=== PATIENT | female | born 1955 | race African-American/Black ===

== ENCOUNTER → 2022-08-28 09:38 | Outpatient (BNVA) | payer OTHER, SELFPAY | PROVIDERS: PCP Hospitalist; Referring Provider Hospitalist; Visit Provider Physician Assistant | DX: Z12.11 Encounter for screening for malignant neoplasm of colon (principal) | CPT/HCPCS: 99202 ==

== ENCOUNTER 2025-02-14 11:11 | Outpatient (AMB) | payer MEDICARE, SELFPAY ==
--- NOTE | 2025-02-14 11:12 | A.OFFVIS_ITS ---
Vital Signs 3 02/14/25 11:18 Height 5 ft 4 in Weight 227 lb 8 oz BMI 39.0 BP 108/64 Blood Pressure Location Rt brachial Position Sitting Pulse 72 Pulse Source Pulse Oximeter Pulse Oximetry (%) 97 Oxygen Delivery Method Room Air Intake Visit Reasons: Other low back pain Intake Note: Pain today 05/26 Prefinish Operator Required: No Accompanied by: Self / Same As Patient Allergies acetaminophen [Percocet] Allergy (Unknown, Verified 02/14/25 11:18) Vomiting ofloxacin [From FLOXIN] Allergy (Unknown, Verified 02/14/25 11:18) HIVES oxycodone [From OXYCONTIN] Allergy (Unknown, Verified 02/14/25 11:18) PER H&P Sulfa (Sulfonamide Antibiotics) Allergy (Unknown, Verified 02/14/25 11:18) Nausea and Vomiting sulfamethoxazole [From BACTRIM] Allergy (Unknown, Verified 02/14/25 11:18) HIVES trimethoprim [From BACTRIM] Allergy (Unknown, Verified 02/14/25 11:18) HIVES HPI HPI Other low back pain: Details: The patient is a 69-year-old female with chronic low back pain with bilateral radiculopathy and degenerative disc disease, lumbar spinal stenosis, left hip, back, knees and left wrist osteoarthritis, fibromyalgia, depression, migraine headaches, presenting today with chronic back pain with radiculopathy. Her chronic low back pain, which has been persisting for several years, is attributed to degenerative disc disease and spinal stenosis. Associated symptoms include left leg numbness, tingling, and weakness. She has experienced intermittent falls due to left leg giving out. Despite prior injections at [facility] for pain relief and past history of physical therapy and TENS unit, benefits have been transient. Patient reports she is scheduled for potential L4-L5 decompression with Dr. Szymanski at [facility] in 2 weeks. She is here to discuss pain medication options for her pain control. Denies any fever or chills, abdominal or groin pain, bladder or bowel dysfunction or saddle anesthesia. Patient lives alone independently. Reports she follows with Psychiatrist provider at [facility] every 3 months. Reports occasional passive suicidal ideation without a clear plan which she attributes to chronic pain and depression. - Onset: Several years ago, worsening gradually. - Quality: Described as pulsing, throbbing, pounding, stabbing, sharp, tingling, burning, sore, aching, heavy, and radiating. - Primary Location: Lower back, radiating to hips and legs, worse on the left. - Exacerbating Factors: Walking, sitting, standing, bending, and all movements. Cold rainy weather changes. - Relieving Factors: Temporary relief with injections. 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 - Affect: Pain impacts sleep and mood, causing distress and depression. - Analgesia: Reports constant pain levels of 8 to 9/10; injections offered temporary relief. - Adverse Effects: Constipation from Ozempic; baclofen, gabapentin, Ibuprofen, meloxicam pain do not help. - Activities of Daily Living: Pain affects mobility, causes occasional falls; functional goal includes pain reduction and improved movement. - Aberrant Drug-Related Behaviors: None reported; high opioid risk due to past attempted suicide and current SI w/o plan. Past Procedures at [facility]: 02/16/24: Midline L5-S1 Interlaminar JOHANNA- 75% pain relief for 5 days 03/24/24: Bilateral L4 TFESI- no improvement 06/16/24: Bilateral L4-L5 facet joints with left facet joint cyst aspiration and rupture- no improvement Oswestry Low Back Disability Score=25 [facility] Medical History (Updated 02/14/25 @ 12:05 by TIMMY Corona) Lumbosacral spondylosis Lumbar degenerative disc disease Personality disorder Schizophrenia Osteoarthritis Nephrolithiasis Hyperlipidemia Hepatitis A GERD (gastroesophageal reflux disease) Fatty liver Eczema Chronic kidney disease Cervical lymphadenopathy (~04/2018) Anemia due to chronic kidney disease Migraines Depression Anxiety Fibromyalgia Hypertension High cholesterol Kidney disease Liver disease Asthma Family History Mother Dementia Social History Household Members: Unknown / Unable to assess Both parents involved: No Housing: Apartment Alcohol intake: current Alcohol intake frequency: holidays/special occasions only Patient Tobacco Use Status: Former Tobacco user e-Cigarette/Vaping Use: Never Used Review of Systems Const Details: - General: Reports constant severe pain. - Neurologic: Reports numbness and tingling in the left leg. - Musculoskeletal: Denies urinary incontinence and numbness in buttocks, except for reported left leg weakness and hip pain. All systems reviewed & are unremarkable except as noted in HPI and below Physical Exam General: Appears afebrile. Alert and oriented. Mood appropriate. Flat affect. Follows and participates in conversation appropriately. Respiratory effort is unlabored. No cough. Able to transition from sit to stand unassisted. Ambulates with bilaterally normal heel strike and toe off, reports increased back pain with heel standing, left>right. General: Yes no CVA tenderness Back/Spine/Pelvis Other: Limited lumbar ROM due to pain. Antalgic gait with mild limping. Leg discrepancy noted with left leg shorter. Demonstrates 5/5 right and 4/5 left strength of quadriceps bilaterally as well as flexion/dorsiflexion of bilateral feet against resistance. 2+ pedal pulses bilaterally. Straight leg rise with dorsiflexion positive on the left. +1 right and diminished left patellar and diminished achilles reflexes bilaterally. Facet loading test positive bilaterally. Boaz sign, Phan?s, Pelvic compression and Stinchfield tests are positive bilaterally, left>right. Minimal left groin pain with left I/E hip rotations. Valsalva maneuver is positive. Back: no CVA tenderness Cervical Spine: cervical ROM normal, cervical muscular tenderness, No Cervical spine scars present and No Cervical spine tenderness Thoracic/Lumbar Spine: thoracic and lumbar spine normal to inspection, No Thoracic/lumbar spine scar(s), Lasegue's sign positive on the left and localized, pain with thoraco-lumbar ROM, paraspinal muscle tenderness, thoraco- lumbar ROM limited, No thoracic spinal tenderness and lumbar spinal tenderness Pelvis: no buttock tenderness and no sciatic notch tenderness Sacroiliac joints: bilaterally tender to palpation Extrem General: Yes capillary refill normal, Yes no clubbing, cyanosis or edema and Yes no calf tenderness Results Reviewed Results Reviewed: Assessment & Plan Assessment & Plan (1) Fibromyalgia: Code(s): M79.7 - Fibromyalgia Category: Medical (2) Spinal stenosis of lumbar region with neurogenic claudication: Code(s): M48.062 - Spinal stenosis, lumbar region with neurogenic claudication Category: Medical (3) Lumbar degenerative disc disease: Code(s): M51.369 - Other intervertebral disc degeneration, lumbar region without mention of lumbar back pain or lower extremity pain Category: Medical (4) Lumbosacral spondylosis: Code(s): M47.817 - Spondylosis without myelopathy or radiculopathy, lumbosacral region Category: Medical (5) Depression: Code(s): F32.A - Depression, unspecified Category: Medical Plan The management plan involves proceeding with the scheduled L4-L5 decompression and potential fusion surgery, addressing the underlying spinal pathology. Postoperative recovery will include rehabilitation, following which options for managing residual arthritic pain will be considered. Continued psychiatric care is recommended alongside optimizing diabetes management. Future interventions such as radiofrequency ablation or nerve stimulation might be useful if pain persists post-recovery. All questions and concerns have been answered and patient agreed with the plan. Follow up as needed. Patient was informed and verbally consented to the use of an ambient scribe for clinic note documentation during this visit. Patient Instructions: I discussed with the patient the diagnosis of lumbar spondylosis, degenerative disc disease and spinal stenosis and the plan for the upcoming surgical intervention. The patient acknowledged understanding of potential alleviation of radicular symptoms. We reviewed alternatives for managing chronic arthritic back pain post-surgery like radiofrequency ablation and nerve stimulation, highlighting expectations, risks, and possible outcomes, including temporary relief durations of up to 10-12 months. I emphasized the significance of postoperative follow-ups with Dr. Szymanski and post-surgical rehabilitation for optimal recovery. I have equipped her with brochures and detailed information on the appropriate management of back pain and the recommended interventions. - Follow up diligently with Dr. Szymanski for preoperative preparation and postoperative appointments. - Engage in prescribed postoperative rehabilitation measures. - Continue taking prescribed psychiatric medications for depression and bipolar disorder and follow up with Psychiatrist. - Contact your primary care provider for obtaining a cane or walker if needed for mobility support. - Maintain regular psychiatric evaluations and report any psychological symptoms. - Review and consider information on radiofrequency ablation and nerve stimulation for managing axial low back pain. Coding Level of Care Code New Pt Level 4 (56760) Diagnoses Fibromyalgia M79.7 Spinal stenosis of lumbar region with neurogenic claudication M48.062 Lumbar degenerative disc disease M51.369 Lumbosacral spondylosis M47.817 Depression F32.A Additional Codes PHQ-9 - 56004 - PHQ-9 Billing: Yes ([id number]) PHQ-9 Over the last 2 weeks, how often have you been bothered by any of the following problems? 1. Little interest or pleasure in doing things: several days 2. Feeling down, depressed, or hopeless: several days 3. Trouble falling or staying asleep, or sleeping too much: several days 4. Feeling tired or having little energy: several days 5. Poor appetite or overeating: several days 6. Feeling bad about yourself - or that you are a failure or have let yourself or your family down: several days 7. Trouble concentrating on things, such as reading the newspaper or watching television: several days 8. Moving or speaking so slowly that other people could have noticed. Or the opposite - being so fidgety or restless that you have been moving around a lot more than usual: several days 9. Thoughts that you would be better off or of hurting yourself in some way: several days Total score: 9 Depression Screening Interpretation: Positive Depression Screening Follow-up: Existing condition, In treatment, Community Mental Health Worker F/U and Follow- up Visit Requested Depression Screening Done: Yes 30138 - PHQ-9 Billing: Yes Source: Developed by Drs. Hemanth Lua, Sheyla Ward, Suman Pelaez and colleagues, with an educational willem from [employer]
[2025-02-14 11:18] VITALS: BP 108/64; PULSE 72; O2SAT 97; BMI 39.0
--- OUTSIDE RECORDS SUMMARY | 2025-02-14 12:48 | XMS_ITS | Encounter Summary ---
Author Organization [facility] Address [address] [facility] [address] [place] [address] Phone Care Team Providers Care Visual Manager Name Role Phone Juanita Martinez DO Primary Care Provide r Reason for Visit * Reason Comments Med Refill Encounter Details Date Type Department Care Team (Late st Contact Info) Description 12/22/2024 Refill [facility] [address] [facility] [address] [place] [address] Rolf Rivera MD [address] [facility] [address] [place] [address] Social History Tobacco Use Types Packs/Day Years Used Date Smoking Tobacco: Former Cigarettes Q uit: 1985 Smokeless Tobacco: Never Alcohol Use Standard Drinks/Week Comments Not Currently 0 (1 standard drink = 0.6 oz pur e alcohol) Comments Unknown Sex and Gender Information Value Date Recorded Sex Assigned at Not on file Legal Sex Female 5:16 PM EST Gender Identity Not on file Sexual Orientation Not on file documented as of this encounter Plan of Treatment Not on file documented as of this encounter Visit Diagnoses Not on filedocumented in this encounter Care Teams Visual Manager Relationship Specialty Start Date End Date Juanita Martinez DO [address] [place] [address] [address] [place] [phone] PCP - General Internal Medicine 02/12/23 documented as of this encounter
--- OUTSIDE RECORDS SUMMARY | 2025-02-14 12:48 | XMS_ITS | Clinical Summary ---
Author Organization [facility] Address [address] [place] [address] Phone Care Team Providers Care Facing Baster Jumpbasting Name Role Phone Juanita Martinez DO Primary Care Provide r Allergies Active Allergy Reactions Criticality Noted Date Comments Ofloxacin Other (see comments) 01/07/2022 Oxycodone-Acetaminophen Other (see comments) Sulfamethoxazole-Trimethoprim Other (see comments) 01/07/2022 Medications docusate sodium (COLACE) 100 MG capsule Take 1 capsule by mouth 1 (one) time each day Active clonazePAM (KlonoPIN) 0.5 MG tablet Take 1 tablet by mouth 1 (one) time each day Active albuterol HFA (PROVENTIL HFA;VENTOLIN HFA) 108 (90 Base) MCG/ACT inhaler 01/04/2022 Active atorvastatin (LIPITOR) 80 MG tablet TAKE 1 TABLET BY MOUTH DAILY. INCREASE DOSE 12/26/2021 Active busPIRone (BUSPAR) 10 MG tablet Take 10 mg by mouth in the morning and 10 mg in the evening. 11/30/2021 Active cyanocobalamin (VITAMIN B-12) 1000 MCG tablet Take 1,000 mcg by mouth 1 (one) time each day 12/07/2021 Active ezetimibe (ZETIA) 10 MG tablet Take 10 mg by mouth 1 (one) time each day 12/26/2021 Active fluticasone-leonardo meterol (ADVAIR DISKUS) 250-50 MCG/DOSE diskus inhaler 01/04/2022 Active hydrOXYzine (ATARAX) 50 MG tablet 25 mg 01/05/2022 Active loratadine (CLARITIN) 10 MG tablet Take 10 mg by mouth 1 (one) time each day if needed 12/07/2021 Active LORazepam (ATIVAN) 0.5 MG tablet TAKE 1 TABLET BY MOUTH EVERY DAY NEEDED FOR SEVERE ANXIETY 01/01/2022 Active meclizine (ANTIVERT) 25 MG tablet 12/07/2021 Active Melatonin 5 MG tablet TAKE 1 TABLET BY MOUTH EVERY EVENING AT BEDTIME NEEDED 11/27/2021 Active metoprolol succinate XL (TOPROL XL) 25 MG 24 hr tablet Take 25 mg by mouth 1 (one) time each day 11/21/2021 Active OLANZapine (ZyPREXA) 5 MG tablet Take 5 mg by mouth at bed time 12/31/2021 Active omeprazole (PriLOSEC) [address] capsule Take 40 mg by mouth 1 (one) time each day 11/27/2021 Active topiramate (TOPAMAX) 200 MG tablet Take 200 mg by mouth at bed time 11/29/2021 Active traZODone (DESYREL) 100 MG tablet TAKE 1 TO 2 TABLETS BY MOUTH EVERY NIGHT NEEDED FOR SLEEP 12/20/2021 Active traZODone (DESYREL) 50 MG tablet 01/05/2022 Active PARoxetine (PAXIL) 40 MG tablet Take 40 mg by mouth at bed time 01/13/2023 Active mirtazapine (REMERON) 7.5 MG tablet Take 7.5 mg by mouth at bed time 01/29/2023 Active Aspirin Low Dose 81 MG EC tablet Take 81 mg by mouth 1 (one) time each day 12/30/2022 Active Empagliflozin (Jardiance) 10 MG tablet Take 10 mg by mouth 1 (one) time each day 30 tablet 1 10/12/2024 Active Active Problems Problem Noted Date Diagnosed Date Chronic kidney disease due to benign hypertensio n 12/08/2022 Stage 3b chronic kidney disease 06/26/2022 Essential hypertension 06/26/2022 Renal osteodystrophy 06/26/2022 Chronic kidney disease 01/07/2022 Hyperlipidemia 01/07/2022 Vitamin D deficiency 01/07/2022 Renal stone 01/07/2022 Hypertension 01/07/2022 Encounters Date Type Department Care Team Description 12/22/2024 Refill [facility] [address]. [address] [place] [address] [address] [place] [address] Rolf Rivera MD from Last 3 Months Family History Medical History Relation Comments Heart disease Father Dementia Mother Relation Status Comments Father Mother Social History Tobacco Use Types Packs/Day Years Used Date Smoking Tobacco: Former Cigarettes Q uit: 1985 Smokeless Tobacco: Never Tobacco Cessation:Counseling Given: No Alcohol Use Standard Drinks/Week Comments Not Currently 0 (1 standard drink = 0.6 oz pur e alcohol) Comments Unknown Sex and Gender Information Value Date Recorded Sex Assigned at Not on file Legal Sex Female 5:16 PM EST Gender Identity Not on file Sexual Orientation Not on file Last Filed Vital Signs Vital Sign Reading Time Taken Comments Blood Pressure 113/60 02/12/2023 3:12 PM EDT Pulse 67 02/12/2023 3:12 PM EDT Temperature - - Respiratory Rate - - Oxygen Saturation 97% 08/07/2022 2:48 PM EDT Inhaled Oxygen Concentration - - Weight 107 kg (235 lb) 02/12/2023 3:12 PM EDT Height - - Body Mass Index - - Plan of Treatment Health Maintenance Due Date Last Done Comments Breast Cancer Screening 1955 Colorectal Cancer Screening: Annual FOBT 2003 Colorectal Cancer Screening: Colonoscopy 2003 Colorectal Cancer Screening: Sigmoidoscopy 2003 Hepatitis B Vaccine (1 of 3 - Risk 3-dose series) 12/2013 Pneumococcal Vaccine: 65+ Years (2 of 2 - PCV) 022 06/13/2021 Diabetes: Hemoglobin A1C 06/03/2024 12/06/2021 Diabetes: Ophthalmology Exam 06/03/2024 Diabetes: Pedal Pulse Checked 06/03/2024 Diabetes: Sensory Foot Exam 06/03/2024 Diabetes: Visual Foot Exam 06/03/2024 Influenza Vaccine (#1) 2024 Procedures Procedure Name Priority Date/Time Associated Diagnosis Comments EXT RESULT ENTRY Routine 12/06/2021 from Last 3 Months or Most Recently Relevant to Health Maintenance Results * (ABNORMAL) EXT RESULT ENTRY (12/06/2021) WBC 4.7 3.3 - 10.0 10*3/ML Red Blood Cell Count 4.24 Hemoglobin 12.8 12.0 - 16.0 Hematocrit 41.2 36.0 - 46.0 Platelets 181 150 - 399 10*3/UL MCV 97.2 82.0 - 108.0 Sodium 145 137 - 147 Potassium 4.3 3.4 - 5.5 Chloride 110.0(A) 99.0 - 108.0 Bicarbonate (CO2) 26 22 - 30 mmol/L Anion Gap 9 <=30 MMOL/L BUN 17 4 - 21 mg/dL Creatinine 1.40(A) 0.50 - 1.10 mg/dL Albumin 4.4 3.5 - 5.0 g/dL Calcium 9.4 8.7 - 10.7 mg/dL Hemoglobin A1C 6.4(A) 4.0 - 6.0 12/06/2021 [facility] Provider LAB BLOOD ORDERABLES Terrie l Result from Last 3 Months or Most Recently Relevant to Health Maintenance Insurance [facility] MEDICARE AEST. [facility] MEDICARE Care Teams Facing Baster Jumpbasting Relationship Specialty Start Date End Date Juanita Martinez DO [address] [facility] [address] [place] [address] PCP - General Internal Medicine 02/12/23
--- OUTSIDE RECORDS SUMMARY | 2025-02-14 12:48 | XMS_ITS | Encounter Summary ---
Author Organization [facility] Address [address] [place] [address] Phone Care Team Providers Care Financial Aid Administrator Name Role Phone Juanita Martinez DO Primary Care Provide r Encounter Details Date Type Department Care Team (Late st Contact Info) Description 01/02/2022 Documentation Only [facility], [address] [place] [phone] Joshua Currie MD [address] [place] [address] [address] [place], [place] Social History Tobacco Use Types Packs/Day Years Used Date Smoking Tobacco: Never Assessed Comments Unknown Sex and Gender Information Value Date Recorded Sex Assigned at Not on file Legal Sex Female 5:16 PM EST Gender Identity Not on file Sexual Orientation Not on file documented as of this encounter Plan of Treatment Not on file documented as of this encounter Visit Diagnoses Not on filedocumented in this encounter Care Teams Financial Aid Administrator Relationship Specialty Start Date End Date Juanita Martinez DO [address] [place] [address] [address] [place] [phone] PCP - General Internal Medicine 02/12/23 documented as of this encounter
--- OUTSIDE RECORDS SUMMARY | 2025-02-14 12:48 | XMS_ITS | Clinical Summary ---
Author Organization [address] [facility] Address [address] [place] [address] Phone Care Team Providers Care Special Effects Person Name Role Phone Juanita Sierra DO Primary Care Provider [phone] Allergies Active Allergy Reactions Criticality Noted Date Comments Ofloxacin 04/23/2018 Oxycodone 04/23/2018 Oxycodone-Acetaminophen 04/23/2018 Sulfamethoxazole-Trimethoprim 2017 Medications baclofen (LIORESAL) 10 mg tablet Take 10 mg by mouth 3 times daily. Active buPROPion XL (WELLBUTRIN XL) 150 mg 24 hr tablet Take 1 Tab by mouth daily. Active cholecalcifero l (VITAMIN D-3) 25 mcg (1,000 unit) tablet Take 2,000 Units by mouth daily. Active clonazePAM (KlonoPIN) 0.5 mg tablet Take 1 tablet (0.5 mg total) by mouth. Active cyanocobalamin (VITAMIN B-12) 1,000 mcg tablet Take 1,000 mcg by mouth daily. Active docusate sodium (COLACE) 100 mg capsule Take 100 mg by mouth daily. Active fluticasone propion-salmet Valerie (ADVAIR DISKUS) 500-50 mcg/dose diskus inhaler Inhale 1 Puff into the lungs 2 times daily. Active haloperidoL (HALDOL) 10 mg tablet Take 15 mg by mouth at bedtime. Active LORazepam (ATIVAN) 0.5 mg tablet Take 0.5 mg by mouth 3 times daily. Active melatonin 5 mg tablet Take 10 mg by mouth at bedtime. Active metoprolol succinate (TOPROL-XL) 25 mg 24 hr tablet Take 25 mg by mouth daily. Active PARoxetine (PAXIL) 40 mg tablet 1 tablet (40 mg total) 1 (one) time each day in the morning. Active QUEtiapine (SEROquel) 400 mg tablet Take 800 mg by mouth at bedtime. Active topiramate (TOPAMAX) 200 mg tablet Take 100 mg by mouth at bedtime. Active acamprosate (CAMPRAL) 333 mg EC tablet Take 1 tablet (333 mg total) by mouth. 4 Active albuterol HFA (PROAIR HFA ; PROVENTIL HFA ; VENTOLIN HFA) 90 mcg/actuation inhaler Inhale 2 puffs by mouth. every 4 to 6 hours as needed 4 Active aspirin 81 mg EC tablet Take 1 tablet (81 mg total) by mouth 1 (one) time each day. 4 Active atorvastatin (LIPITOR) 80 mg tablet Take 1 tablet (80 mg total) by mouth. 4 Active busPIRone (BUSPAR) 15 mg tablet Take 1 tablet (15 mg total) by mouth. 4 Active gabapentin (NEURONTIN) 100 mg tablet Take 1 tablet (100 mg total) by mouth 2 (two) times a day. at bedtime 4 Active hydrOXYzine HCL (ATARAX) 25 mg tablet 4 Active loratadine (CLARITIN) 10 mg tablet Take 1 tablet (10 mg total) by mouth 1 (one) time each day. 4 Active OLANZapine (ZyPREXA) 5 mg tablet Take 1 tablet (5 mg total) by mouth. at bedtime. 4 Active Ozempic 0.25 mg or 0.5 mg (2 mg/3 mL) injection pen INJECT 0.5MG UNDER THE SKIN ONCE WEEKLY 4 Active Stimulant Laxative Plus 8.6-50 mg per tablet 4 Active traZODone (DESYREL) 150 mg tablet TAKE 1 TABLET BY MOUTH EVERY NIGHT FOR SLEEP 4 Active Wixela Inhub 250-50 mcg/dose diskus inhaler Inhale 1 puff by mouth 2 (two) times a day. 4 Active omeprazole (PriLOSEC) [address] capsule Take 1 capsule (40 mg total) by mouth 1 (one) time each day. 4 Active DULoxetine (CYMBALTA) [address] capsule Take 2 capsules (40 mg total) by mouth 1 (one) time each day. Do not crush or chew. Active mirtazapine (REMERON) 7.5 mg tablet Take 1 tablet (7.5 mg total) by mouth at bedtime. Active OLANZapine (ZyPREXA) 2.5 mg tablet at bedtime. Active omeprazole (PriLOSEC) [address] capsule Take 20 mg by mouth daily. 025 Discontinued Farxiga 10 mg tablet Take 1 tablet (10 mg total) by mouth 1 (one) time each day in the morning. 4 025 Discontinued Jardiance 10 mg tablet Take 1 tablet (10 mg total) by mouth 1 (one) time each day. 4 025 Discontinued ibuprofen (ADVIL,MOTRIN) 600 mg tablet Take 1 tablet (600 mg total) by mouth 3 (three) times a day if needed. 4 025 Discontinued meloxicam (MOBIC) 15 mg tablet Take 1 tablet (15 mg total) by mouth 1 (one) time each day. 4 025 Discontinued penicillin v potassium (VEETID) 500 mg tablet Take 1 tablet (500 mg total) by mouth. 4 025 Discontinued Active Problems Problem Noted Date Diagnosed Date Spinal stenosis, lumbar ana on without neurogenic claudication 01/27/2025 Spinal stenosis of lumbar re gion with neurogenic claudication 11/03/2024 Assessment & Plan (11/03/2024 10:47 PM EST): Patient describes pain in her back that radiates to the hips and bilateral legs L >R. More specifically she describes numbness in the lateral thighs, at times burning throbbing pain, hypersensitivity in the left lateral thigh. She states it feels like someone is digging into her thigh with a needle, putting pepper on it and peeling back the skin and pouring hot water on it . She notes pain with sitting, standing, walking. She has difficulty doing daily activities like washing dishes, sweeping, mopping, bending. She went for bilateral L4-5 facet injections with cyst aspirations 06/16/2024, states it did help somewhat, about 30% with her pain. Prior to that she had bilateral L4 TFE's 03/24/2024, epidural steroid injection -12-10. She rates her pain 7-10, states it was a 10/10 before the most recent facet injections. She does note improvement walking distances if she is able to lean forward on a shopping cart at the store. She reports history of leg length discrepancy. 2 weeks ago she had severe left hip pain that lasted 1-1/2 weeks. She was diagnosed with diabetes about 2 months ago. 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 No recent physical therapy. Patient is on gabapentin, is a non-smoker. Patient had MRI lumbar spine 08/20/2024 [facility] that shows multilevel degenerative changes, including L4-5 moderately severe central stenosis, prominent DJD. We reviewed the images in detail on the computer with the patient and her daughter. Ms. Hugo describes severe back and L >R leg pain, worse with standing and walking, bending. I will review her MRI with Dr. Szymanski to see if she recommends surgical intervention, like possible L4-5 decompression +/- fusion, and see if she would like patient to have EMG/NCS study. Patient reports having a more recent lumbar MRI done in September at [place], we will try to get most recent imaging study sent over. Patient's daughter works at the PCP office, will send over recent labs including A1c level, and recent PCP notes. Patient may need cardiac clearance if she has surgery. All questions answered. Anemia due to chronic kidney disease 04/23/2018 Asthma 04/23/2018 Cervical lymphadenopathy 04/23/2018 CKD (chronic kidney disease) stage 3, GFR 30-59 ml/min 04/23/2018 Colon polyps 04/23/2018 Depression 04/23/2018 Overview (10/18/2024): IP for depression & impulsivity Eczema 04/23/2018 Fatty liver 04/23/2018 Fibromyalgia 04/23/2018 GERD (gastroesophageal reflux disease) 8 Hepatitis A 04/23/2018 Hyperlipidemia 04/23/2018 Hypertension 04/23/2018 Migraine 04/23/2018 Nephrolithiasis 04/23/2018 Overview (10/18/2024): Left Osteoarthritis 04/23/2018 Overview (10/18/2024): Lumbosacral spine, hips, knees, Left wrist Schizophrenia 04/23/2018 Overview (10/18/2024): Personality Disorder Encounters Date Type Department Care Team Description 01/25/[address] [id number] Ruby Salinas MA Advice Only 01/04/[address] [phone] Tish Gallegos PA Results (EMG/NCS study) 12/13/[address] [phone] Ruby Salinas MA Appointment (EMG/NCS appointment scheduled for 12/27/24 @ 1pm w/ at [facility]. Pt aware) 11/30/[address] [phone] Tish Gallegos PA Results (Lumbar spine MRI reviewed with Dr. Szymanski) from Last 3 Months Immunizations Name Administration Dates Next Due Influenza Quadravalent, MDCK , 0.5ml, preservative free (Flucelvax) 6mo and older 09/27/2021 Influenza Quadrivalent, 0.5m l, preservative free (Fluarix; FluLaval; Fluzone) ages 6mo and older (Afluria) 3yo and older 07/27/2018,10/20/2017 Influenza trivalent, 0.5mL (Fluad) 65yo and olde r 09/28/2024 Pneumococcal polysaccharide 23 valent (Pneumovax 23) 2yo and older 06/13/2021 Surgical History Surgery Date Site/Laterality Comments NASAL SEPTUM SURGERY REPAIR NASAL SEPTAL PERFORATIONS OTHER SURGICAL HISTORY endometrial surgery CATARACT EXTRACTION DILATION AND CURETTAGE OF UTERUS Medical History Medical History Date Comments Asthma 04/23/2018 Hypertension 04/23/2018 GERD (gastroesophageal reflux disease) 04/23/2018 Depression 04/23/2018 P 9-08/2017 for depression & impulsivity Fibromyalgia 04/23/2018 Migraine 04/23/2018 Hyperlipidemia 04/23/2018 Nephrolithiasis 04/23/2018 Left CKD (chronic kidney disease) stage 3, GFR 30-59 ml/min (CMS/HCC) 04/23/2018 Fatty liver 04/23/2018 Colon polyps 04/23/2018 Osteoarthritis 04/23/2018 Lumbosacral spin e, hips, knees, Left wrist Hepatitis A 04/23/2018 Schizophrenia 04/23/2018 Personality Diso rder Anemia due to chronic kidney disease 04/23/2018 Cervical lymphadenopathy 8 Eczema 04/23/2018 Family History Medical History Relation Name Comments Breast cancer Sister diag in her 50 's Relation Name Status Comments Sister Social History Tobacco Use Types Packs/Day Years Used Date Smoking Tobacco: Former Cigarettes Q uit: 11/17/1993 Smokeless Tobacco: Never Alcohol Use Standard Drinks/Week Comments Yes 0 (1 standard drink = 0.6 oz pur e alcohol) Comments Unknown Sex and Gender Information Value Date Recorded Sex Assigned at Not on file Legal Sex Female 8:39 PM EST Gender Identity Not on file Sexual Orientation Not on file Obstetrics History Last Filed Vital Signs Vital Sign Reading Time Taken Comments Blood Pressure - - Pulse - - Temperature - - Respiratory Rate - - Oxygen Saturation - - Inhaled Oxygen Concentration - - Weight 101 kg (222 lb) 02/10/2025 11:00 AM EDT Height 162.6 cm (5' 4 ) 02/10/2025 11:00 AM EDT Body Mass Index 38.11 02/10/2025 11:00 AM EDT Plan of Treatment Upcoming Encounters Date Type Department Care Team (Latest Contact Info) Description 02/18/2025 9:00 AM EDT Pre-Admission Testing [facility] Pre-Admission Testing [address] [place] [phone] 02/28/2025 7:30 AM EDT Hospital Encounter [facility] [place] [address] [place] [phone] Dasia Szymanski MD [address] [place] [address] 02/28/2025 7:30 AM EDT - 02/28/2025 9:[address] [facility] [place] [address] [place] [phone] Dasia Szymanski MD [address] [place] [address] L4-5 decompression [90125 (CPT??)] Scheduled Procedures Name Priority Associated Diagnoses Date/Ti me DECOMPRESSION LUMBAR Spinal stenosis, lumbar region without neurogenic claudication 02/28/2025 7:30 AM EDT Health Maintenance Due Date Last Done Comments Breast Cancer Screening 1954 Diabetes: Annual Foot Exam 1964 Diabetes: Annual Retina Eye Exam 1964 DTaP,Tdap,and Td Vaccines (1 - Tdap) 1973 Zoster Vaccines (1 of 2) 2004 RSV Immunization Patients 60+ Years Old (1 - Risk 60-74 years 1-dose series) 2014 Diabetes: Annual GFR (Glomerular Filtration Rate) 10/05/2019 10/05/2018 Pneumococcal Vaccine: 50+ Years (2 of 2 - PCV) 06/13/2022 06/13/2021 Cholesterol Screening (Lipid Panel) 10/13/2024 Colorectal Cancer Screening: Colonoscopy 10/13/2024 Depression Screening 10/13/2024 Falls Risk Assessment 10/13/2024 Hepatitis C Screening 10/13/2024 Hypertension/CHF/CAD Annual BMP Blood Test 10/13/2024 10/05/2018 Medicare Annual Wellness Visit 10/13/2024 Osteoporosis Screening (Bone Density Screening) 10/13/2024 Social Influencers of Health Screening 10/13/2024 Diabetes: Annual Urine Albumin-Creatinine Ratio (uACR) 01/27/2025 02/12/2023 Diabetes: Blood Sugar Control Test (HGBA1C) 01/27/2025 COVID-19 Vaccine Completed 09/28/2024, 12/2021, 06/18/2022, Additional history exists Influenza Vaccine Completed 09/28/2024, , 07/27/2018, Additional history exists HIB Vaccines Aged Out No longer eligi ble based on patient's age to complete this topic HPV Vaccines Aged Out No longer eligi ble based on patient's age to complete this topic Hepatitis A Vaccines Aged Out No long er eligible based on patient's age to complete this topic Hepatitis B Vaccines Aged Out No long er eligible based on patient's age to complete this topic IPV Vaccines Aged Out No longer eligi ble based on patient's age to complete this topic MMR Vaccines Aged Out No longer eligi ble based on patient's age to complete this topic Meningococcal ACWY Vaccine Aged Out N o longer eligible based on patient's age to complete this topic Meningococcal B Vacine Aged Out No lo nger eligible based on patient's age to complete this topic RSV Immunization Patients Under 20 months Aged Out No longer eligible based on patient's age to complete this topic Varicella Vaccines Aged Out No longer eligible based on patient's age to complete this topic Procedures Procedure Name Priority Date/Time Associated Diagnosis Comments ANNUAL BMP BLOOD TEST Routine 10/05/2018 from Last 3 Months or Most Recently Relevant to Health Maintenance Results * Annual BMP Blood Test (10/05/2018) Annual BMP Blood Test Abstracted Historical Provider MD HEALTH MAINTENANCE Final Result from Last 3 Months or Most Recently Relevant to Health Maintenance Insurance [facility] MEDICARE MEDICARE Care Teams Special Effects Person Relationship Specialty Start Date End Date Juanita Sierra DO [address] [facility] [address] [place] [phone] PCP - General Internal Medicine 10/12/24
== END 2025-02-14 11:44 | disposition home or self-care (01) ==
LOC: HO.PMC 11:11
PROVIDERS: PCP Internal Medicine; Referring Provider Internal Medicine; Visit Provider Nurse Practitioner Family
DX: M79.7 Fibromyalgia (principal); M48.062 Spinal stenosis, lumbar region with neurogenic claudication; M51.369 Other intervertebral disc degeneration, lumbar region without mention of lumbar back pain or lower extremity pain; M47.817 Spondylosis without myelopathy or radiculopathy, lumbosacral region; F32.A Depression, unspecified
CPT/HCPCS: 99204

== ENCOUNTER → 2025-02-14 11:11 | Outpatient (BNVA) | payer MEDICARE, SELFPAY | PROVIDERS: PCP Internal Medicine; Referring Provider Internal Medicine; Visit Provider Nurse Practitioner Family | DX: G89.29 Other chronic pain (principal); M19.032 Primary osteoarthritis, left wrist; M79.7 Fibromyalgia; G43.909 Migraine, unspecified, not intractable, without status migrainosus; M48.062 Spinal stenosis, lumbar region with neurogenic claudication; M51.360 Other intervertebral disc degeneration, lumbar region with discogenic back pain only; M47.817 Spondylosis without myelopathy or radiculopathy, lumbosacral region; F32.A Depression, unspecified | CPT/HCPCS: 96127; 99202 ==